=== PATIENT | female | born 1990 | race Caucasian/White ===

== ENCOUNTER → 2018-07-25 11:42 | Outpatient (CLI) | payer OTHER, SELFPAY ==
--- NOTE | 2018-07-25 10:15 | EMB_PTH ---
PATIENT: NELSY MARMOLEJO LOC: [facility] U#:[id number] AGE/SX: 35/F ROOM: RE07/25/[address]: Dr. Moy Beal MD : 1990 BED: DIS: SPEC #: [id number] RECD: 07/25/18 11:28 STATUS: SPRING REMary #: [id number] KATHLEEN: 07/25/18 10:[address]: Moy Beal DEPT: SURGICAL PATHOLOGY RECD BY: Calderon Art ENTERED: 07/25/18 12:57 SP TYPE: ENDOM BX/C ANA DR: Dr. Mayelin Mccormack MD Tissues: Endometrium, NOS Procedures: Surgery Specimen Level IV HEADER OPERATION: Endometrial biopsy PRE-OP DIAGNOSIS: N92.0 TISSUE SUBMITTED: Endometrial biopsy MICROSCOPIC DIAGNOSIS Endometrial biopsy: Proliferative endometrium. SJ:reginaldo 07/26/18 MICROSCOPIC DESCRIPTION Slides are reviewed. GROSS DESCRIPTION Received in fixative is one container labeled with the patient's name and designated endometrial biopsy. The specimen consists of multiple minute fragments of light decker soft tissue that in aggregate measure 1 x 0.5 x <0.1 cm. The specimen is totally submitted in one cassette. / AM:reginaldo 07/25/18 TC:4 CPT: 38602
== END ==
PROVIDERS: Family Provider Internal Medicine; PCP Internal Medicine; Referring Provider Obstetrics & Gynecology; Visit Provider Obstetrics & Gynecology
DX: N92.0 Excessive and frequent menstruation with regular cycle (principal)
CPT/HCPCS: 88305

== ENCOUNTER 2018-08-12 09:15 | Day surgery (SDC) | payer OTHER, SELFPAY ==
[2018-08-08 15:32] LABS: Hematocrit 38.7 % (37-47); Mean Corp Hgb Conc 33.6 g/gl (32-36); Mean Corpuscular Hgb 29.8 pg (27.0-32.0); Mean Corpuscular Volume 88.8 fL (81-99); Mean Platelet Vol. 11.5 fl (6.2-12.0); Platelet Count 256 K/mm3 (150-450); RBC Distribution Width CV 12.1 % (11.6-14.6); RBC Distribution Width SD 38.5 fl (35.1-43.9); Red Blood Count 4.36 M/mm3 (4.2-5.4)
[2018-08-08 16:02] LABS: Scan Indicated on CBC? Y/N NO
[2018-08-08 16:03] LABS: International Normalized Ratio 1.1; Prothrombin Time (Protime)PT. 13.9 SECONDS (11.7-14.9)
[2018-08-08 16:04] LABS: Partial Thromboplast Time 28.3 Seconds (24.1-36.2)
[2018-08-08 16:21] LABS: Creatinine, Serum 0.68 mg/dL (0.55-1.02); EST Glomerular Filtration Rate 107 mL/min (>60); Est Glom Filt Rate - Afr Amer 129 mL/min (>60)
[2018-08-08 16:31] LABS: Pregnancy, Serum, hCG Quali. NEGATIVE Negative (0-9 Nonpreg)
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
[2018-08-12 09:36] VITALS: BP 121/75; PULSE 94; RESP 14; TEMP 37.1; O2SAT 99; BMI 30.2
[2018-08-12 09:40] LABS: Internal QC Validated? YES +Cl - CLEAR BKGD; Pregnancy, Urine Negative Negative
--- NOTE | 2018-08-12 10:50 | OV_PTH ---
PATIENT: NELSY MARMOLEJO LOC: [facility] U#:[id number] AGE/SX: 28/F ROOM: RE08/12/[address]: Dr. Moy Beal MD : 1990 BED: DIS: 08/12/2018 SPEC #: [id number] RECD: 08/12/18 12:23 STATUS: SPRING ELROY #: [id number] KATHLEEN: 08/12/18 10:[address]: Moy Bael DEPT: SURGICAL PATHOLOGY RECD BY: Calderon Art ENTERED: 08/12/18 12:45 SP TYPE: OVARY OTHR DR: Julianna Bertrand, CERTIFIED VEHICLE FIRE INVESTIGATOR-C Tissues: A - Right ovary B - Fallopian tube C - Endocervical Procedures: Surgery Specimen Level IV HEADER OPERATION: Hysteroscopy, hydroablation, dilation and curettage PRE-OP DIAGNOSIS: Complex right ovarian cyst; menorrhagia; dysmenorrhea TISSUE SUBMITTED: A - Right tube and ovary, B - Left tube, C - Endometrial curettings MICROSCOPIC DIAGNOSIS A. Right fallopian tube and ovary, right salpingo-oophorectomy: Follicular cysts, corpus luteal cysts and benign epithelial inclusion cysts. Focal endometriosis. Fallopian tube with no pathologic change. B. Left fallopian tube, salpingectomy: No pathologic change. C. Endometrium, curettings: Secretory endometrium. AM:reginaldo 08/13/18 COMMENT Case has been reviewed in consultation with Dr. Rodriguez who concurs with the above diagnosis. IDC:SJ MICROSCOPIC DESCRIPTION Slides are reviewed. GROSS DESCRIPTION A - Received in fixative is one container labeled with the patient's name and designated right tube and ovary. The specimen consists of 16 fragments of pink-decker soft tissue measuring in aggregate 6 x 4 x 2.5 cm. Cut sections resemble portions of ovary and cysts. Also present free in the container is a fallopian tube measuring 7 cm in length and 0.5 cm in average diameter. The fallopian tube is discontinuous in its distal portion consistent with tubal ligation. Hammer Setter sections are submitted in six cassettes. B - Received in fixative is one container labeled with the patient's name and designated left tube. The specimen consists of a fallopian tube with an average length of 8.5 cm and has an average diameter of 0.7 cm. The fallopian tube has a normal fimbriated end. No mass lesions are identified. Hammer Setter sections are submitted in one cassette. C - Received in fixative is one container labeled with the patient's name and designated endometrial curettings. The specimen consists of multiple irregular fragments of pink-decker soft tissue that in aggregate measure 8 x 5 x 0.2 cm. The specimen is totally submitted in six cassettes. / AM:reginaldo 08/12/18 TC:5 CPT: 54087 x3
--- NOTE | 2018-08-12 10:54 | PCM.OPRPT ---
Report of Operation Date of Procedure: 08/12/18 Pre-Operative Diagnosis: Menorrhagia, Desires Permanent Sterilization, Persistent Complex Right Ovarian Cyst Post-Operative Diagnosis: Menorrhagia, Desires Permanent Sterilization, Persistent Complex Right Ovarian Cyst Surgery/Procedure Performed:: Diagnostic Hysteroscopy, D&C, Hydrothermal Ablation, Diagnostic Laparoscopy, Bilateral Salpingectomy, Right Oophorectomy Description of Surgical Findings:: 10 cm endometrial cavity with plush endometrium. No polyps or fibroids visualized. Cervix which is high in the vagina which would make vaginal hysterectomy difficult but LAVH or robotic hysterectomy feasible. Robotic assisted vaginal hysterectomy would be preferred. Normal-appearing fallopian tubes ovaries and pelvis although there appeared to be some adhesions suggestive of endometriosis in the posterior cul-de-sac. Left functional ovarian cyst present. 4 cm right ovary. hide or skin buffer: Izabella Terrell Type of Anesthesia:: General - Endotracheal Anesthesiologist: Yves Atkins Specimen's removed: Endometrial curettings, bilateral fallopian tubes, right ovary Drains: None Estimated Blood Loss (mL): Minimal Fluids Replaced: Crystalloid Description of Procedure: Surgeon: Moy Beal MD, FACOG Indication: This is a 28 year old patient who has been having problems with extremely heavy menses. She also desires permanent sterilization and has a complex persistent right ovarian cyst. Conservative measures have not been helpful. Endometrial sampling was benign and pelvic ultrasound showed that ablation may be helpful. Pt has been counseled regarding the risks, benefits and alternatives of this procedure and all questions answered. She understands that only about half of patients will have amenorrhea after this procedure. She also understands the permanent nature of her tubal as well as the failure rate of 1-2%. All questions were answered we consider the patient well-informed. Procedure: Patient taken to the operating room where after induction of general anesthesia the patient was prepped and draped in the usual sterile fashion. Bladder was drained of urine with a catheter. Anterior cervix grasped with a tenaculum and Conn cannula was placed and attention was turned toward the laparoscopic portion of the procedure. Approximately 20 cc of half percent ropivacaine was injected subumbilically suprapubically and midway between. A 5 mm bladeless trocar was placed subumbilically and intraperitoneal placement confirmed. After CO2 insufflation was complete, a 5 mm bladeless trocar was introduced suprapubically. The above findings were noted. A 5 mm bladeless port was then placed midway between these 2 ports for tubal manipulation. Each fallopian tube was identified to its fimbriated end and an Enseal device was used to divide the infundibulopelvic ligaments on the right and mesosalpinx on the left. A 10/12 mm bladeless port was switched into the lower supra pubic site and right tube and ovary were removed. The peritoneal cavity and upper abdomen were examined and noted to be normal except as above. Pelvis was copiously irrigated removing all clot and right ureteral peristalsis was noted. Laparoscopic instruments with as much CO2 gas as possible were removed and incisions were closed with interrupted 4-0 Monocryl suture. Steri-Strips placed across the incisions. Attention was turned again toward the vaginal portion of the procedure and cervix was dilated to about 17 [place] size. Hysteroscopic hydrothermal ablation (HTA) unit was placed in the cervix and the above findings were noted. HTA unit was removed and the uterus was gently curretted removing all contents. An HTA ablation cycle was then carried out at about 90 degrees Centigrade for 10 minutes with virtually no fluid loss during the procedure. After an appropriate cool down the HTA unit was removed with minimal bleeding noted. Patient tolerated procedure well was taken to recovery room in satisfactory condition sponge instrument and needle counts were all reportedly correct. Estimated blood loss for the case was minimal. Cefotan 2 g IV was given prior to beginning the operative procedure. Specimens to pathology were endometrial curettings and bilateral fallopian tubes and right ovary. Grafts/Implants Used: None - Complications None - Admit VTE Documentation VTE Present on Admission: Yes VTE Mechan Device Prophylaxis: SCD's VTE Pharm Prophylaxis ordered?: No Reason prophylaxis not ordered:: Treatment Not Indicated
--- NOTE | 2018-08-12 10:58 | OP.PCM_ITS ---
Report of Operation Date of Procedure: 08/12/18 Pre-Operative Diagnosis: Menorrhagia, Desires Permanent Sterilization, Per sistent Complex Right Ovarian Cyst Post-Operative Diagnosis: Menorrhagia, Desires Permanent Sterilization, Persistent Complex Right Ovarian Cyst Surgery/Procedure Performed:: Diagnostic Hysteroscopy, D&C, Hydrothermal Ablation, Diagnostic Laparoscopy, Bilateral Salpingectomy, Right Oophorectomy Description of Surgical Findings:: 10 cm endometrial cavity with plush endometrium. No polyps or fibroids visualized. Cervix which is high in the vagina which would make vaginal hysterectomy difficult but LAVH or robotic hysterectomy feasible. Robotic assisted vaginal hysterectomy would be preferred. Normal-appearing fallopian tubes ovaries and pelvis although there appeared to be some adhesions suggestive of endometriosis in the posterior cul-de-sac. Left functional ovarian cyst present. 4 cm right ovary. rubber gasket inspector trimmer: Izabella Terrell Type of Anesthesia:: General - Endotracheal Anesthesiologist: Yves Atkins Specimen's removed: Endometrial curettings, bilateral fallopian tubes, right ovary Drains: None Estimated Blood Loss (mL): Minimal Fluids Replaced: Crystalloid Description of Procedure: Surgeon: Moy Beal MD, FACOG Indication: This is a 28 year old patient who has been having problems with extremely heavy menses. She also desires permanent sterilization and has a complex persistent right ovarian cyst. Conservative measures have not been helpful. Endometrial sampling was benign and pelvic ultrasound showed that ablation may be helpful. Pt has been counseled regarding the risks, benefits a nd alternatives of this procedure and all questions answered. She understands that only about half of patients will have amenorrhea after this procedure. She also understands the permanent nature of her tubal as well as the failure rate of 1-2%. All questions were answered we consider the patient well-informed. Procedure: Patient taken to the operating room where after induction of general anesthesia the patient was prepped and draped in the usual sterile fashion. Bladder was drained of urine with a catheter. Anterior cervix grasped with a tenaculum and Conn cannula was placed and attention was turned toward the laparoscopic portion of the procedure. Approximately 20 cc of half percent ropivacaine was injected subumbilically suprapubically and midway between. A 5 mm bladeless trocar was placed subumbilically and intraperitoneal placement confirmed. After CO2 insufflation was complete, a 5 mm bladeless trocar was introduced suprapubically. The above findings were noted. A 5 mm bladeless port was then placed midway between these 2 ports for tubal manipulation. Each fallopian tube was identified to its fimbriated end and an Enseal device was used to divide the infundibulopelvic ligaments on the right and mesosalpinx on the left. A 10/12 mm bladeless port was switched into the lower supra pubic site and right tube and ovary were removed. The peritoneal cavity and upper abdomen were examined and noted to be normal except as above. Pelvis was copiously irrigated removing all clot and right ureteral peristalsis was noted. Laparoscopic instruments with as much CO2 gas as possible were removed and incisions were closed with interrupted 4-0 Monocryl suture. Steri-Strips placed across the incisions. Attention was turned again toward the vaginal portion of the procedure and cervix was dilated to about 17 [place] size. Hysteroscopic hydrothermal ablation (HTA) unit was placed in the cervix and the above findings were noted. HTA unit was removed and the uterus was gently curretted removing all contents. An HTA ablation cycle was then carried out at about 90 degrees Centigrade for 10 minutes with virtually no fluid loss during the procedure. After an ap propriate cool down the HTA unit was removed with minimal bleeding noted. Patient tolerated procedure well was taken to recovery room in satisfactory condition sponge instrument and needle counts were all reportedly correct. Estimated blood loss for the case was minimal. Cefotan 2 g IV was given prior to beginning the operative procedure. Specimens to pathology were endometrial curettings and bilateral fallopian tubes and right ovary. Grafts/Implants Used: None - Complications None - Admit VTE Documentation VTE Present on Admission: Yes VTE Mechan Device Prophylaxis: SCD's VTE Pharm Prophylaxis ordered?: No Reason prophylaxis not ordered:: Treatment Not Indicated
--- NOTE | 2018-08-12 10:58 | PCM.DC.TUB ---
Discharge Diet: No Restrictions Discharge Activity: Return to Normal Activity, May Drive - when you are no longer taking pain/narcotic medicines., May Shower, May Take a Tub Bath May resume sexual activity in: 3 weeks Additional Activity Instructions:: Ambulate often the next week after surgery. Call your doctor if your incision/area has: Continuous Slow Oozing, Sudden Increased Bleeding, Increased Pain/ Swelling, Increased Redness, Foul Smelling Discharge Call your doctor if you observe: Fever of 101 or Higher, Inability to urinate, Inability to have a bowel movement, Using more than one pad per hour Allergies/Adverse Reactions: Allergies No Known Allergies Allergy (Verified 08/07/18 15:47) Medications to take at Discharge Naproxen [Naprosyn] 250 - 500 mg PO Q8H PRN PRN #60 tablet 06/06/13 Fluoxetine [Prozac] 40 mg PO DAILY 08/07/18 Metoclopramide [Reglan] 10 mg PO PRN PRN 08/07/18 Sumatriptan Succinate [Imitrex] 100 mg PO .X1 PRN 08/07/18 Hydrocodone/Acetaminophen [[place] 5-325 Tablet] 1 ea PO Q6H PRN PRN 7 Days #14 tab 08/12/18 The following prescriptions were given: Hydrocodone/Acetaminophen [[place] 5-325 Tablet] 1 ea PO Q6H PRN PRN 7 Days #14 tab PRN Reason: Severe Pain (6-10) Primary Care Physician: Julianna Bertrand, ELVIN-C [Primary Care Provider] - Test Results: Test results from this visit will be discussed in further detail at your follow-up appointment, if applicable. Please Follow Up With: Moy Beal MD - [phone] When: 2-3 weeks
[2018-08-12] MEDS: Ropivacaine 0.5% 30 ML Vial (11:12)
[2018-08-12 12:22] VITALS: BP 121/75; BP 128/77; PULSE 105; RESP 16; TEMP 36.8; O2SAT 98
[2018-08-12 12:30] VITALS: BP 115/73; BP 121/75; PULSE 106; RESP 16; O2SAT 98
[2018-08-12 12:45] VITALS: BP 113/74; BP 121/75; PULSE 86; RESP 16; O2SAT 96
[2018-08-12 12:55] VITALS: BP 121/75; BP 122/78; PULSE 96; RESP 16; TEMP 36.4; O2SAT 99
[2018-08-12] MEDS: HYDROcodone Bitartrate/Apap 5/325 Tablet PO (13:46)
[2018-08-12 15:00] VITALS: BP 115/70; BP 121/75; PULSE 103; RESP 16; TEMP 37.3; O2SAT 100
== END 2018-08-12 15:04 | disposition home or self-care (01) ==
LOC: SDC 09:15 → AC 09:16
PROVIDERS: Anesthesiology; Family Provider Nurse Practitioner Family; PCP Nurse Practitioner Family; Referring Provider Obstetrics & Gynecology; Visit Provider Obstetrics & Gynecology
PROC: (CPT 58661; 2018-08-12 10:35)
DX: N83.01 Follicular cyst of right ovary (principal); N83.11 Corpus luteum cyst of right ovary; N83.291 Other ovarian cyst, right side; N80.1 Endometriosis of ovary; F32.9 Major depressive disorder, single episode, unspecified; R51 Headache; Z87.891 Personal history of nicotine dependence; Z79.899 Other long term (current) drug therapy
CPT/HCPCS: 58558; 58661; 36415; 81025; 82565; 84703; 85027; 85610; 85730; 86850; 86900; 88302; 88305; J7120; C1760; J2405

== ENCOUNTER → 2018-12-19 | Outpatient (CLI) | payer OTHER, SELFPAY ==
[2018-12-25 12:21] LABS: HPV Reflexed? NOT INDICATED
== END | disposition home or self-care (01) ==
LOC: WOBLAB 14:06
PROVIDERS: Family Provider Nurse Practitioner Family; PCP Nurse Practitioner Family; Visit Provider Obstetrics & Gynecology
DX: Z12.4 Encounter for screening for malignant neoplasm of cervix (principal)
CPT/HCPCS: 87624; 88175; G0145

== ENCOUNTER 2020-05-24 05:42 | Day surgery (SDC) | payer OTHER, SELFPAY ==
--- NOTE | 2020-05-20 10:17 | EKG12_ITS ---
Test Reason : PRE OP Blood Pressure : / mmHG Vent. Rate : 076 BPM Atrial Rate : 076 BPM P-R Int : 126 ms QRS Dur : 082 ms QT Int : 348 ms P-R-T Axes : 041 038 033 degrees QTc Int : 391 ms Normal sinus rhythm Normal ECG Confirmed by EZRA BASS, NEDA ([id number]), senior technical editor ZANE KONG ([id number]) on 05/24/2020 8:04:00 AM Referred By: Moy Beal Confirmed By:NEDA MUNGUIA MD
[2020-05-20 11:37] LABS: Hematocrit 44.1 % (37-47); Hemoglobin 14.1 g/dL (12.0-15.0); Mean Corpuscular Hgb 30.2 pg (27.0-32.0); Mean Corpuscular Volume 94.4 fL (81-99); Mean Platelet Vol. 10.9 fl (6.2-12.0); Platelet Count 259 K/mm3 (150-450); RBC Distribution Width CV 11.9 % (11.6-14.6); RBC Distribution Width SD 41.1 fl (35.1-43.9); Red Blood Count 4.67 M/mm3 (4.2-5.4); White Blood Count 5.6 K/mm3 (4.4-11.0)
[2020-05-20 11:46] LABS: Prothrombin Time (Protime)PT. 12.9 SECONDS (11.7-14.9)
[2020-05-20 11:47] LABS: Partial Thromboplast Time 26.6 Seconds (24.1-36.2)
[2020-05-20 12:15] LABS: AST(SGOT) 19 U/L (15-37); Alanine Aminotransfer ALT/SGPT 27 U/L (13-56); Alkaline Phosphatase 57 U/L (45-117); Anion Gap 5 (5-15); BUN 12 mg/dL (7-18); BUN/Creat Ratio 17.6 RATIO (10-20); Bilirubin, Direct 0.21 mg/dL (0.00-0.30); Calcium,Total 8.9 mg/dL (8.5-10.1); Chloride 104 mmol/L (98-107); Creatinine, Serum 0.68 mg/dL (0.55-1.02); EST Glomerular Filtration Rate 106 mL/min (>60); Est Glom Filt Rate - Afr Amer 129 mL/min (>60); Globulin 3.4 g/dL (2.2-4.2); Glucose 76 mg/dL (74-106); Potassium 3.6 mmol/L (3.5-5.1); Protein, Total 7.4 g/dL (6.4-8.2); Sodium Level 139 mmol/L (136-145)
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
[2020-05-24] VITALS (12 sets, daily range): BP systolic 88–120; BP diastolic 53–76; PULSE 70–109; RESP 14–18; TEMP 36.6–37.4; O2SAT 95–100; BMI 26.6
--- NOTE | 2020-05-24 | HYST_PTH ---
PATIENT: NELSY MARMOLEJO LOC: [facility] [place] [facility] [place][id number] AGE/SX: 30/F ROOM: RE05/24/[address]: Dr. Moy Beal MD : [id number] BED: DIS: 05/25/2020 SPEC #: [id number] RECD: 05/24/20 13:24 STATUS: SPRING REMary #: [id number] KATHLEEN: 05/24/20 00:[address]: Moy Bela DEPT: SURGICAL PATHOLOGY RECD BY: Minh Tejeda ENTERED: 05/24/20 13:25 SP TYPE: HYSTERECT OTHR DR: Julianna Bertrand, PRINCIPAL SOFTWARE ENGINEER-C Tissues: Uterus, NOS Procedures: Surgery Specimen Level V HEADER OPERATION: Robotic assisted vaginal hysterectomy PRE-OP DIAGNOSIS: Menorrhagia and dysmenorrhea status post endometrial ablation TISSUE SUBMITTED: Uterus and cervix MICROSCOPIC DIAGNOSIS Uterus and cervix, vaginal hysterectomy: Cervix - mild chronic cystic cervicitis. Endometrium - proliferative endometrium. Myometrium - no pathologic diagnosis. ARABELLA:reginaldo 05/25/20 MICROSCOPIC DESCRIPTION Slides are reviewed. GROSS DESCRIPTION Received in fixative is one container labeled with the patient's name and designated uterus, cervix. The specimen consists of a hysterectomy specimen consisting of uterus with cervix weighing 118 gm and measuring 9.5 x 7 x 4.5 cm. The serosal surface is decker, glistening. The ectocervical mucosa is unremarkable. The external os is oval in contour. The endocervical canal measures 2.5 cm in length and the endocervical mucosa is decker, glistening and unremarkable. The triangular endometrial cavity measures 4.5 cm in length and up to 3 cm in width. The endometrium is decker, glistening without any mass lesion and measures up to 0.2 cm in thickness. Sections of the uterine wall do not reveal any mass lesion and measures up to 2 cm in thickness. Tableau Report Developer sections are submitted in six cassettes as follows: 1 - anterior cervix, 2 - posterior cervix, 3 & 4 - anterior uterine wall, 5 & 6 - posterior uterine wall. / Madhavi 05/24/20 TC:3 CPT: 11987
[2020-05-24] MEDS: Lactated Ringers 1,000 ML 100 ML IV ×2 (06:35)
[2020-05-24] MEDS: Cefotetan 2 GM in 0.9% NS 100 ML IV (07:22)
--- NOTE | 2020-05-24 07:30 | OP.PCM_ITS ---
Report of Operation Date of Procedure: 05/24/20 Pre-Operative Diagnosis: Menorrhagia and Dysmenorrhea S/P Endometrial Ablation Post-Operative Diagnosis: Menorrhagia and Dysmenorrhea S/P Endometrial Ablation, Adhesions, Endometriosis Surgery/Procedure Performed:: Robotic Assisted Vaginal Hysterectomy, Lysis of Adhesions Description of Surgical Findings:: 10 cm uterus with absent tubes and right ovary. Some adhesions of the rectosigmoid in the posterior cul-de-sac adhered to the posterior cul-de-sac. 5 cm cystic left ovary drained of clear fluid. Inflammatory cysts and adhesions noted in the posterior cul-de-sac consistent with endometriosis. activities manager: Stefani Farias Type of Anesthesia:: General - Endotracheal Anesthesiologist: Abad Lopez Specimen's removed: Uterus Drains: Baptiste to straight drain Estimated Blood Loss (mL): Minimal Fluids Replaced: Crystalloid Description of Procedure: Surgeon: Moy Beal MD, FACOG Indication: This is a 30 year old patient who has been having problems with menorrhagia and severe dysmenorrhea after having an endometrial ablation. Conservative measures have not been helpful. The patient has been counseled regarding the risks, benefits and alternatives of this procedure including the possibility of bleeding, infection, and injury to surrounding structures such as bowel bladder and all questions were answered. She understands that if BSO is needed that she will need to be on HRT for an indefinite period of time. Procedure: Pt taken to the operating room where, after induction of general anesthesia, the patient was prepped and draped in the usual sterile fashion and placed on a non-slip Huggy-u-vac device. Trendelenburg test was satisfactory. Bladder was drained of urine with a Baptiste catheter which was left in place. Anterior cervix grasped and cervix was dilated to about 3-4 mm. Uterus sounded to 9 cms. 0-Vicryl suture was placed at the 3:00 and 9:00 position of the cervix. A large Advincula Cytology Teacher Uterine Manipulator was then placed in the uterus and attention was turned to the laparoscopic portion of the procedure. Ropivocaine 0.5% was injected approximately 2-3 cm superior to the umbilicus and an 8 mm robotic camera port was introduced directly with intraperitoneal placement confirmed with CO2 insufflation. 8 mm robotic side ports were introduced under direct visualization approximately 10 cm lateral and 2 cm inferior to the umbilical port. A 5 mm left upper quadrant port was introduced and airseal insufflation with CO2 was started. The above findings were noted. Robot was docked without difficulty and attention turned to the robotic portion of the procedure. Approximately 30 cc of Ropivicaine was used. Left infundibulopelvic ligament was ligated with 35 best bipolar coagulation to the level of the round ligament. The left ovarian cyst was opened using cautery and clear cystic fluid was evacuated. After blunt dissection of posterior cul-de-sac adhesions below the uterosacral ligaments, the posterior aspect of the cervix was identified and then opened for about 1 cm using 25 watt monopolar cautery. Bladder flap was opened and divided to the level of the round ligaments using monopolar cautery. Progressive bites were then ligated on each side of the cervix with 35 best bipolar cautery to the uterine arteries. The anterior vaginal mucosa was entered and cervix circumscribed with monopolar cautery. Uterus was removed through the vagina. Vaginal cuff was closed first with 0-Vicryl Sameera stitches placed at each angle followed by closure of the mid-cuff with 0-Monocryl V-lock suture in two layers. Pelvis was copiously irrigated with saline and the right ureter was noted to peristalse. Skylar was placed across the vaginal cuff and pedicles to assist with postoperative hemostasis. Robot was undocked and trocars were removed with as much gas as possible. Incisions were closed with 4-0 Monocryl subcuticular sutures and incisions covered with steri-strips. The patient tolerated the procedure well and was taken to the recovery room in satisfactory condition. Sponge, instruments and needle counts were all correct. There were no apparent complications of the surgery. Cefotan 2 gms IV was gi thuan prior to the procedure. Grafts/Implants Used: None - Complications None - Admit VTE Documentation VTE Present on Admission: Yes VTE Mechan Device Prophylaxis: SCD's VTE Pharm Prophylaxis ordered?: Yes
--- NOTE | 2020-05-24 07:32 | DCINST_ITS ---
<Moy Beal - Last Filed: 05/24/20 07:32> Discharge Diet: No Restrictions Discharge Activity: Return to Normal Activity, May Not Drive - while taking narcotic pain medications., May Shower, May Take a Tub Bath May resume sexual activity in: 6-8 weeks Call your doctor if your incision/area has: Continuous Slow Oozing, Sudden Increased Bleeding, Increased Pain/ Swelling, Increased Redness, Foul Smelling Discharge Call your doctor if you observe: Fever of 101 or Higher, Inability to urinate, Inability to have a bowel movement, Using more than one pad per hour Allergies/Adverse Reactions: Allergies No Known Allergies Allergy (Verified 05/24/20 06:21) Medications to take at Discharge Naproxen [Naprosyn] 250 - 500 mg PO Q8H PRN PRN #60 tablet 06/06/13 Fluoxetine [Prozac] 80 mg PO DAILY 08/07/18 Sumatriptan Succinate [Imitrex] 100 mg PO .X1 PRN 08/07/18 Ascorbic Acid [Vitamin C] 1,000 mg PO DAILY 05/13/20 Promethazine HCl [Phenergan] 12.5 mg PO PRN PRN 05/13/20 Vitamin C/Biotin [Ffzc-Tzhw-Edbqm Gummies] 1 ea PO DAILY 05/13/20 Docusate Sodium [Colace] 100 mg PO DAILY PRN PRN #60 cap 05/24/20 Oxycodone [Oxyir] 5 mg PO Q6H PRN PRN 7 Days #14 tab 05/24/20 The following prescriptions were given: Docusate Sodium [Colace] 100 mg PO DAILY PRN PRN #60 cap PRN Reason: Constipation Transmission Status: Received by [facility] Oxycodone [Oxyir] 5 mg PO Q6H PRN PRN 7 Days #14 tab PRN Reason: Pain Score 6-10 Transmission Status: Received by [facility] Primary Care Physician: Julianna Bertrand NP, [employer] SPRING MACHINE OPERATOR-C [Primary Care Provider] - Test Results: Test results from this visit will be discussed in further detail at your follow- up appointment, if applicable. Please Follow Up With: Moy Beal MD When: 2 to 3 weeks <Destinee Huddleston - Last Filed: 05/25/20 08:11> Test Results: Test results from this visit will be discussed in further detail at your follow- up appointment, if applicable.
[2020-05-24] MEDS: Ropivacaine 0.5% 30 ML Vial (09:50)
[2020-05-24] MEDS: oxyCODONE 5 MG Tablet PO ×4 (12:12→23:53)
[2020-05-24] MEDS: FLUoxetine 20 MG Capsule 80 MG PO (12:13)
[2020-05-24] MEDS: Dextrose 5%-Lactated Ringers 1,000 ML 150 ML IV (12:23)
[2020-05-24] MEDS: Enoxaparin 30 MG/0.3 ML Syringe SC (18:20)
[2020-05-24] MEDS: Ketorolac 30 MG/ML Syringe IV ×2 (18:21→23:53)
[2020-05-25 03:00] VITALS: BP 112/73; PULSE 99; RESP 16; TEMP 37; O2SAT 98
[2020-05-25] MEDS: oxyCODONE 5 MG Tablet PO ×2 (05:02→10:28)
[2020-05-25] MEDS: 0.9% Saline Lock 10 ML Syringe IV ×2 (05:50→12:20)
[2020-05-25] MEDS: Ketorolac 30 MG/ML Syringe IV ×2 (05:50→12:19)
[2020-05-25 05:54] LABS: Hematocrit 35.1 % (37-47); Hemoglobin 11.3 g/dL (12.0-15.0); Mean Corp Hgb Conc 32.2 g/dL (32-36); Mean Corpuscular Hgb 30.7 pg (27.0-32.0); Mean Corpuscular Volume 95.4 fL (81-99); Mean Platelet Vol. 10.3 fl (6.2-12.0); Platelet Count 206 K/mm3 (150-450); RBC Distribution Width CV 11.9 % (11.6-14.6); RBC Distribution Width SD 41.4 fl (35.1-43.9); Red Blood Count 3.68 M/mm3 (4.2-5.4); White Blood Count 10.3 K/mm3 (4.4-11.0)
[2020-05-25 06:18] LABS: Creatinine, Serum 0.55 mg/dL (0.55-1.02); EST Glomerular Filtration Rate 135 mL/min (>60); Est Glom Filt Rate - Afr Amer 164 mL/min (>60); Estimated Creatinine Clearance 116.14 ml/min
--- NOTE | 2020-05-25 06:27 | PCM.PN.BLA ---
Progress Note POD#1 Subjective: Pt has ambulated. Tolerating some PO. Reports some cramping in RUQ. Pain medication helping. Objective: Vital Signs Temp Pulse Resp BP Pulse Ox 05/25/20 03:00 98.6 F 99 16 112/73 98 05/24/20 21:00 98.3 F 102 H 16 113/67 98 General: NAD HEART: RRR LUNGS: CTAB ABDOMEN: soft, mildly tender, dressing c/d, bowel sounds present EXT: no edema Labs: Laboratory Last Values WBC 10.3 K/mm3 (4.4-11.0) 05/25/20 05:22 RBC 3.68 M/mm3 (4.2-5.4) L 05/25/20 05:22 Hgb 11.3 g/dL (12.0-15.0) L 05/25/20 05:22 Hct 35.1 % (37-47) L 05/25/20 05:22 MCV 95.4 fL (81-99) 05/25/20 05:22 MCH 30.7 pg (27.0-32.0) 05/25/20 05:22 MCHC 32.2 g/dL (32-36) 05/25/20 05:22 RDW Std Deviation 41.4 fl (35.1-43.9) 05/25/20 05:22 RDW Coeff of Kacey 11.9 % (11.6-14.6) 05/25/20 05:22 Plt Count 206 K/mm3 (150-450) 05/25/20 05:22 MPV 10.3 fl (6.2-12.0) 05/25/20 05:22 PT 12.9 SECONDS (11.7-14.9) 05/20/20 10:07 INR 1.0 05/20/20 10:07 APTT 26.6 Seconds (24.1-36.2) 05/20/20 10:07 Sodium 139 mmol/L (136-145) 05/20/20 10:07 Potassium 3.6 mmol/L (3.5-5.1) 05/20/20 10:07 Chloride 104 mmol/L (98-107) 05/20/20 10:07 Carbon Dioxide 30.0 mmol/L (21.0-32.0) 05/20/20 10:07 Anion Gap 5 (5-15) 05/20/20 10:07 BUN 12 mg/dL (7-18) 05/20/20 10:07 Creatinine 0.55 mg/dL (0.55-1.02) 05/25/20 05:22 Estim Creat Clear Calc 116.14 ml/min 05/25/20 05:22 Est GFR (MDRD) Af Amer 164 mL/min (>60) 05/25/20 05:22 Est GFR (MDRD) Non-Af 135 mL/min (>60) 05/25/20 05:22 BUN/Creatinine Ratio 17.6 RATIO (-20) 05/20/20 10:07 Glucose 76 mg/dL (74-106) 05/20/20 10:07 Calcium 8.9 mg/dL (8.5-10.1) 05/20/20 10:07 Total Bilirubin 0.90 mg/dL (0.20-1.00) 05/20/20 10:07 Direct Bilirubin 0.21 mg/dL (0.00-0.30) 05/20/20 10:07 AST 19 U/L (15-37) 05/20/20 10:07 ALT 27 U/L (13-56) 05/20/20 10:07 Alkaline Phosphatase 57 U/L (45-117) 05/20/20 10:07 Total Protein 7.4 g/dL (6.4-8.2) 05/20/20 10:07 Albumin 4.0 g/dL (3.2-5.0) 05/20/20 10:07 Globulin 3.4 g/dL (2.2-4.2) 05/20/20 10:07 Blood Type A POSITIVE 05/20/20 10:10 Antibody Screen NEGATIVE 05/20/20 10:10 A/P: 30 yo POD#1 s/p RA-total laparoscopic hysterectomy, lysis of adhesions. Complicated by: acute blood loss anemia secondary to surgery. 1. Post op -Pain controlled -Tolerating diet -Baptiste to be removed. Diet: Regular IVFs: HLIV DVT PPx: SCDs, Lovenox qD Dispo: Home today Destinee Huddleston DO STROKE Vital Signs/Narrative: Vital Signs Temp Pulse Resp BP Pulse Ox 05/25/20 03:00 98.6 F 99 16 112/73 98
[2020-05-25 07:15] VITALS: O2SAT 97
[2020-05-25 07:44] VITALS: BP 113/76; PULSE 103; RESP 16; TEMP 37.3; O2SAT 99
[2020-05-25] MEDS: FLUoxetine 20 MG Capsule 80 MG PO (10:24)
[2020-05-25] MEDS: Ondansetron 4 MG/2 ML Vial IV (10:28)
== END 2020-05-25 12:37 | disposition home or self-care (01) ==
LOC: SDC 05:42 → AC 05:43 → MS3 08:32
PROVIDERS: Anesthesiology; PCP Nurse Practitioner Family; Referring Provider Obstetrics & Gynecology; Visit Provider Obstetrics & Gynecology
PROC: 0UT94ZZ Resection of Uterus, Percutaneous Endoscopic Approach (ICD-10-PCS; CPT 58550; principal; 2020-05-24 07:10)
DX: N72 Inflammatory disease of cervix uteri (principal); G43.909 Migraine, unspecified, not intractable, without status migrainosus; F32.9 Major depressive disorder, single episode, unspecified; Z79.899 Other long term (current) drug therapy; Z87.891 Personal history of nicotine dependence
CPT/HCPCS: 00840; 58550; 58679; 36415; 80048; 80076; 82565; 85027; 85610; 85730; 86850; 86900; 86901; 88307; 93005; 99251; J7120; A4216; G0463; J2405

== ENCOUNTER 2022-03-04 10:41 | Emergency (ER) | payer OTHER, SELFPAY ==
[2022-03-04 10:44] VITALS: BP 119/72; PULSE 141; RESP 15; TEMP 36.6; O2SAT 100; BMI 25.0
[2022-03-04] MEDS: Adenosine 6 MG/2 ML Syringe IV (10:45)
[2022-03-04] MEDS: Adenosine 6 MG/2 ML Syringe 12 MG IV (10:48)
--- NOTE | 2022-03-04 10:50 | EKG12_ITS ---
Test Reason : CP Blood Pressure : / mmHG Vent. Rate : 138 BPM Atrial Rate : 138 BPM P-R Int : 126 ms QRS Dur : 074 ms QT Int : 282 ms P-R-T Axes : 067 053 010 degrees QTc Int : 427 ms Sinus tachycardia Otherwise normal ECG Confirmed by KAPIL BASS, CHANO ([id number]), clinical editor ZANE KONG ([id number]) on 03/07/2022 12:58:06 PM Referred By: ANABELA Confirmed By:CHANO DICK MD
[2022-03-04 10:53] VITALS: O2SAT 100
[2022-03-04] MEDS: Metoprolol Tartrate 5 MG/5 ML Vial IV (10:55)
--- NOTE | 2022-03-04 11:01 | EDS_ITS ---
HPI History of Present Illness Chief Complaint: Palpitations Informant: patient Onset/Context/Timing Onset: Today Activity at onset: sudden Timing: Continuous Quality: Positive for Tightness Location: Substernal Worsened By: Nothing Relieved By: Nothing Associated Symptoms: Positive for Palpitations; Negative for Nausea, Vomiting, Diaphoresis, Dyspnea, Cough, Fever, Lightheadedness or Acid Reflux Narrative Narrative: Patient presents with supraventricular tachycardia that began today. Patient states it began rather suddenly. Patient states she has a history of supraventricular tachycardia and has had a cardiac ablation for this. Patient states she feels her heart is racing. Patient denies any shortness of breath. Patient admits to some tightness in her chest. Patient states nothing makes it better and nothing makes it worse. Patient states she tried vagal maneuvers prior to coming to the emergency department which helped her briefly. Patient denies any nausea or vomiting. Patient states she did take her metoprolol at home today. CVD Risk Factors: Positive for Smoking; Negative for Hypertension, Diabetes, Hypercholesterolemia or Family History 1' </=55 PE Risk Factors: Negative for Recent Travel/Surgery, Recent Immobilization, Prior DVT or PE, Cancer or OCP + Smoking + >/=35 PFSH PFSH Medical History Cholecystectomy planned Endometriosis Hypothyroid SVT (supraventricular tachycardia) Home Medications naproxen 250 mg tablet 250 - 500 mg PO Q8H PRN PRN Mild Pain ##60 06/06/13 [Rx Last Taken 05/23/20] sumatriptan succinate 100 mg tablet (Imitrex) 100 mg PO .X1 PRN 08/07/18 [History Last Taken 05/23/20] levothyroxine 25 mcg tablet 1 tab PO DAILY 03/04/22 [History Last Taken Unknown] lisdexamfetamine 40 mg capsule (Vyvanse) 1 cap PO DAILY 03/04/22 [History Last Taken Unknown] metoprolol succinate 25 mg tablet,extended release 24 hr 1 tab PO BID 03/04/22 [History Last Taken Unknown] ondansetron 8 mg disintegrating tablet 1 tab PO Q6H NAUSEA 03/04/22 [History Last Taken Unknown] promethazine 25 mg tablet 1 tab PO PRN PRN Migraine Headache 03/04/22 [History Last Taken Unknown] Allergy/AdvReac Type Severity Reaction Status Date / Time No Known Allergies Allergy Verified 03/04/22 10:52 Surgical History History of hysterectomy Social History Smoking Status: Current every day smoker tobacco type: cigarettes ROS ROS ED Constitutional Constitutional ED: Denies chills or fever(s) Eyes Eyes: Denies blurry vision or change in vision ENT ENT ED: Denies rhinorrhea or sore throat Cardiovascular Cardiovascular: Reports chest pain and palpitations Respiratory/Chest Respiratory/Chest: Denies cough or dyspnea Gastrointestinal Gastrointestinal: Denies nausea or vomiting Genitourinary Genitourinary ED: Denies dysuria or hematuria Musculoskeletal Musculoskeletal: Reports back pain; Denies neck pain Integumentary Denies abscess or rash Neurologic Neurologic: Denies headache(s) or weakness Allergic/Immunologic Allergic/Immunologic ED: Denies mouth swelling or urticaria EXAM Physical Exam Const Vital Signs: 03/04/22 10:44 03/04/22 10:48 03/04/22 10:53 Temperature 97.8 F Temperature Source Temporal Pulse Rate 141 H Respiratory Rate 15 Respiratory Effort Normal Non-Labored Blood Pressure 119/72 Blood Pressure Mean 87 Pulse Ox 100 100 Oxygen Delivery Method Room Air Room Air 03/04/22 11:46 03/04/22 12:04 03/04/22 13:02 Temperature 98.4 F Temperature Source Oral Pulse Rate 101 H 89 90 Respiratory Rate 23 H 16 16 Respiratory Effort Blood Pressure 107/76 107/69 107/76 Blood Pressure Mean 86 81 86 Pulse Ox 99 100 100 Oxygen Delivery Method Room Air Room Air Room Air Positive well nourished and well developed General Appearance ED: well developed and NAD HEENT Reports moist mucous membranes Neck supple and no JVD Resp normal respiratory effort and clear to auscultation bilaterally Cardio regular rhythm and no murmurs Rate: tachycardic GI normal to inspection, nondistended, normoactive bowel sounds and non-tender Palpation: soft Extremity normal to inspection General Extremety ED: Negative for edema or tenderness General Extremity: Negative for edema Neuro oriented x3, CN's II-XII intact bilaterally and no sensory deficits noted Sensorium / Orientation: alert Motor Exam: strength 5/5 throughout Psych mental status grossly normal Skin no rashes or lesions noted MDM MDM MDM Narrative Medical decision making narrative: Vagal maneuvers were attempted. Patient's heart rate improved with vagal maneuvers but then returned to supraventricular tachycardia in the 140s. Patient was given 6 mg of adenosine. Patient had brief improvement but again returned to supraventricular tachycardia in the 140s. Patient was given 12 mg of adenosine. Patient had similar results with this. Patient was given a dose of Lopressor. Patient's heart rate improved into the 90s after this. EKG was obtained initially. On my interpretation, it shows supraventricular tachycardia with a rate of 138. There are no acute ST or T wave changes. Other than the tachycardia, this was unchanged compared to previous EKG. CBC was within normal limits. Basic metabolic profile was within normal limits. TSH was normal. High-sensitivity troponin was less than 3. Portable 1 view chest x-ray was obtained. On my interpretation, lung rojas are clear. There is normal cardiac silhouette. Bony thorax is normal. There is no acute process noted. Radiologist also interpreted the x-ray and agrees. 2-hour repeat high- sensitivity troponin was also less than 3. Patient was advised of her findings. Patient was instructed to follow-up with her primary care physician in 3 to 5 days. Patient understood and was agreeable with the plan. All questions were answered. Lab Data Attestation: I reviewed the patient's lab results. Labs: Laboratory Results - last 24 hr 03/04/22 03/04/22 03/04/22 10:46 10:46 12:56 WBC 10.3 RBC 4.63 Hgb 14.1 Hct 42.8 MCV 92.4 MCH 30.5 MCHC 32.9 RDW Std Deviation 39.6 RDW Coeff of Kacey 11.7 Plt Count 327 MPV 11.3 Immature Gran % (Auto) 0.200 Neut % (Auto) 57.1 Lymph % (Auto) 32.8 [place] % (Auto) 6.6 Eos % (Auto) 2.9 Baso % (Auto) 0.4 Absolute Neuts (auto) 5.9 Absolute Lymphs (auto) 3.37 Nucleated RBC % 0 Sodium 138 Potassium 3.6 Chloride 105 Carbon Dioxide 28.0 Anion Gap 5 BUN 13 Creatinine 0.80 Estim Creat Clear Calc 85.56 Est GFR (MDRD) Af Amer 106 Est GFR (MDRD) Non-Af 88 BUN/Creatinine Ratio 16.3 Glucose 87 Calcium 9.8 Troponin I High Sens < 3 L < 3 L TSH 1.53 Radiography Chest X-Ray - ED: 1 View, Read by ED Physician, Read by Radiologist, Normal and No Acute Disease Diagnostic Testing: Clinical Impression(s) from Imaging Studies Chest X-Ray 03/04/22 11:02 IMPRESSION: Normal x-ray examination of the chest. Electronically Signed: Germain Rodríguez MD at 11:24 EDT , EKG Initial EKG: Attestation: I personally reviewed and interpreted this EKG as follows: Interpretation: No Acute Injury Pattern and Sinus Tachycardia (138) Prior EKG tracings: available for review Prior: Unchanged (05/20/2020) Discharge Plan Triage Chief Complaint: Palpitations ED Provider: Toñito Alvarenga Dx/Rx/DC Orders Clinical Impression: Supraventricular tachycardia, Heart palpitations Instructions: ED Understanding Supraventricular Tachycardia (SVT), ED Palpitations Prescriptions: No Action naproxen 250 MG tablet 250 - 500 mg PO Q8H PRN PRN (Reason: Mild Pain) Qty: 60 0RF sumatriptan succinate [Imitrex] 100 MG tablet 100 mg PO .X1 PRN levothyroxine 25 mcg tablet 1 tab PO DAILY metoprolol succinate 25 mg tablet extended release 24 hr 1 tab PO BID Label Comments: TAKE ONE TABLET BY MOUTH TWICE DAILY, DO not crush OR chew tablets Vyvanse 40 mg capsule 1 cap PO DAILY Label Comments: TAKE ONE CAPSULE BY MOUTH DAILY ondansetron 8 mg tablet,disintegrating 1 tab PO Q6H promethazine 25 mg tablet 1 tab PO PRN PRN (Reason: Migraine Headache) Label Comments: TAKE ONE TABLET BY MOUTH EVERY 6 HOURS NEEDED FOR nausea Primary Care Provider: Julianna Bertrand NP Referrals: Julianna Bertrand NP, AIR CONDITIONING INSTALLER-C [Primary Care Provider] - 3-5 Days Disposition Disposition: Home, Self Care
--- NOTE | 2022-03-04 11:02 | RAD_ITS ---
STUDY: X-RAY CHEST REASON FOR EXAM: Female, 32 years old. Chest pain TECHNIQUE: Single AP portable upright view of the chest. COMPARISON: None. FINDINGS: The lungs are clear and expanded. There is no demonstrated pleural abnormality. Normal size heart. Normal mediastinum and jerrod. Normal visualized pulmonary arteries. Normal visualized aortic arch and descending thoracic aorta. Normal visualized thoracic spine. Normal visualized ribs, clavicles, and shoulders. There is no demonstrated abnormality of the visualized soft tissue structures of the upper abdomen. RAD/Chest 1 View (Portable) IMPRESSION: Normal x-ray examination of the chest. Electronically Signed: Germain Rodríguez MD at 11:24 EDT ,
[2022-03-04 11:10] LABS: Absolute Lymphocyte Count 3.37 X10^3/uL (0.83-4.51); Absolute Neutrophil Count 5.9 X10^3/uL (2.0-7.7); Basophil# 0.04 X10^3/uL; Basophil% 0.4 % (0-1); Eosinophils% 2.9 % (0-5); Hematocrit 42.8 % (37-47); Hemoglobin 14.1 g/dL (12.0-15.0); Lymphocyte # 3.37 X10^3/ul (0.83-4.51); Lymphocyte % 32.8 % (19-41); Mean Corp Hgb Conc 32.9 g/dL (32-36); Mean Corpuscular Hgb 30.5 pg (27.0-32.0); Mean Corpuscular Volume 92.4 fL (81-99); Mean Platelet Vol. 11.3 fl (6.2-12.0); Monocyte# 0.68 X10^3/uL; Monocyte% 6.6 % (0-10); NRBC Flagged by Analyzer 0 % (0-5); Neutrophil # 5.86 X10^3/uL (2.7-7.7); Neutrophil % 57.1 % (47-70); Platelet Count 327 K/mm3 (150-450); RBC Distribution Width CV 11.7 % (11.6-14.6); RBC Distribution Width SD 39.6 fl (35.1-43.9); Red Blood Count 4.63 M/mm3 (4.2-5.4); White Blood Count 10.3 K/mm3 (4.4-11.0)
[2022-03-04 11:27] LABS: Anion Gap 5 (5-15); BUN 13 mg/dL (7-18); BUN/Creat Ratio 16.3 RATIO (10-20); Calcium,Total 9.8 mg/dL (8.5-10.1); Chloride 105 mmol/L (98-107); EST Glomerular Filtration Rate 88 mL/min (>60); Est Glom Filt Rate - Afr Amer 106 mL/min (>60); Estimated Creatinine Clearance 85.56 ml/min; Glucose 87 mg/dL (74-106); Potassium 3.6 mmol/L (3.5-5.1); Sodium Level 138 mmol/L (136-145); Thyroid Stim Hormone (TSH) 1.53 uIU/mL (0.358-3.74); Troponin-I HS (w/2H Reflex) < 3 pg/mL (3.0-54.0)
[2022-03-04 11:46] VITALS: BP 107/76; PULSE 101; RESP 23; TEMP 36.9; O2SAT 99
[2022-03-04 12:04] VITALS: BP 107/69; PULSE 89; RESP 16; O2SAT 100
[2022-03-04 13:01] LABS: Reflex Troponin-HS? (from REC) Y
[2022-03-04 13:02] VITALS: BP 107/76; PULSE 90; RESP 16; O2SAT 100
[2022-03-04 13:22] LABS: Troponin-I HS < 3 pg/mL (3.0-54.0)
[2022-03-04 13:36] VITALS: BP 111/76; PULSE 88; RESP 24; O2SAT 100
== END 2022-03-04 13:43 | disposition home or self-care (01) ==
PROVIDERS: Emergency Medicine; Emergency Provider Emergency Medicine; PCP Nurse Practitioner Family; Visit Provider Emergency Medicine
DX: I47.1 Supraventricular tachycardia (principal); E03.9 Hypothyroidism, unspecified; F17.210 Nicotine dependence, cigarettes, uncomplicated; Z79.899 Other long term (current) drug therapy
CPT/HCPCS: 71045; 80048; 84443; 84484; 85025; 93005; 96374; 96375; 99284; J7030; A4216; J0153